=== PATIENT | male | born 1945 | race Caucasian/White ===

== ENCOUNTER 2017-10-30 07:32 | Day surgery (SDC) | payer OTHER ==
[~2017-10-30] VITALS: Ht 177.8 cm; Wt 90.7 kg
[~2017-10-30 07:32] MED LIST: AVAPRO300 MG PO; BRILINTA60 MG PO; CARDURA XL8 MG PO; CRESTOR10 MG PO; HYDROCHLOROTH12.5 M3 PO; LO-DOSE ASPIRIN81 M2 PO; PROTONIX40 MG PO; RANITIDINE HCL300 MG PO; REQUIP1 MG PO; TOPROL XL25 MG PO
[2017-10-30 08:12] VITALS: BP 146/85
[2017-10-30 11:29] VITALS: BP 157/82
[2017-10-30 12:20] VITALS: BP 135/77
== END 2017-10-30 12:25 | disposition home or self-care (01) ==
LOC: SDC 07:32
DX: E11.3591 Type 2 diabetes mellitus with proliferative diabetic retinopathy without macular edema, right eye (principal); H43.11 Vitreous hemorrhage, right eye; H33.001 Unspecified retinal detachment with retinal break, right eye; I10 Essential (primary) hypertension; N40.0 Benign prostatic hyperplasia without lower urinary tract symptoms; Z95.5 Presence of coronary angioplasty implant and graft; Z79.82 Long term (current) use of aspirin; Z87.891 Personal history of nicotine dependence
CPT/HCPCS: J0690; J2997; J3300